=== PATIENT | male | born 1985 | race Caucasian/White ===

== ENCOUNTER → 2018-01-08 | Outpatient (CLI) | payer BC ==
[~2018-01-08] VITALS: Ht 190.5 cm; Wt 132.0 kg
[~2018-01-08] MED LIST: NORMAL SALINE IV ONE; SINCALIDE IV ONE
--- NOTE | 2018-01-08 10:02 | RAD ---
Indication: Epigastric pain for 3 months. Technique: Nuclear medicine HIDA scan with 5.5 mCi of technetium 99m Choletec. Ejection fraction was calculated after infusion of 2.6 mcg of cholecystokinin. Comparison: None Findings: Gallbladder is visualized at 10 minutes and continues to fill in a retrograde fashion. Activity is seen in the duodenum at 25 minutes. After infusion of 2.6 mcg of cholecystokinin, the ejection fraction calculated is 56%. Impression: 1. No cystic duct obstruction. 2. Normal ejection fraction.
== END | disposition home or self-care (01) ==
LOC: NM 07:50
PROVIDERS: ATTEND Internal Medicine Gastroenterology
DX: R10.13 Epigastric pain (principal); I10 Essential (primary) hypertension
CPT/HCPCS: 78226; 96374; 96375; A9537; J2805

== ENCOUNTER 2019-05-11 19:41 | Emergency (ER) | payer BC, OTHER ==
[~2019-05-11] VITALS: Ht 190.5 cm; Wt 144.2 kg
[2019-05-11] MEDS: ASPIRIN 325 MG TABLET PO ONE (20:15)
[2019-05-11] MEDS: IV NORMAL SALINE 1,000ML 1,000 ML IV ONE (20:16)
--- NOTE | 2019-05-11 20:21 | PHYS DOC ---
Past History Past Medical History: Hypertension Past Surgical History: No Surgical History Smoking: Non-smoker Alcohol Use: Occasionally Drug Use: None Adult General Chief Complaint Chief Complaint: CHEST PAIN HPI HPI Mr. Greene is a 34yo M w/ PMH significant for HTN and obesity who presents with 3 days of intermittent substernal chest pressure that does not radiate or have an identifiable trigger. Chest pressure occurred 2x on Thursday, 2x Thursday and several times today; each episode lasts for approximately 15 minutes and is associated with numbness/tingling sensation of the arms as well as difficulty breathing on during the episode. Also reports migraines related to elevated BP which have been well-controlled with ibuprofen. Patient denies current VAZQUEZ, fever, chills, n/v, abdominal pain. Denies current chest pain. No prior cardiac history of MT or DVT or PE. Patient saw his PCP yesterday for the symptoms at which time troponin test was performed and was slightly elevated at 0.06. Review of Systems Review of Systems Constitutional: Denies fever or chills Eyes: Denies redness or eye pain HENT: Denies nasal congestion or sore throat Respiratory: Reports shortness of breath. Denies cough or hemoptysis. Cardiovascular: Reports chest pressure but no pain which is currently resolved. Denies palpitations. GI: Denies abdominal pain, nausea, vomiting, diarrhea, constipation, or hematochezia : Denies dysuria or hematuria Musculoskeletal: Denies back pain or joint pain Integument: Denies rash or skin lesions Neurologic: Reports numbness/tingling of b/l UE. Denies headache. Complete systems were reviewed and found to be within normal limits, except as documented in this note. Family History Family History Brother had ischemic stroke at 29 y/o Current Medications Current Medications Current Medications Medications (Trade) Dose Ordered Sig/Izabella Start Time Stop Time Status Last Admin Dose Admin Aspirin (Lola Aspirin) 325 mg 1X ONCE 05/11/19 20:15 05/11/19 20:16 Sodium Chloride 1,000 ml @ 1,000 mls/hr 1X ONCE 05/11/19 20:00 05/11/19 20:59 Allergies Allergies Allergies Coded Allergies Type Severity Reaction Last Updated Verified No Known Drug Allergies 01/08/18 No Physical Exam Physical Exam Constitutional: obese, well developed, well nourished, no acute distress, non- toxic appearance HENT: Normocephalic, atraumatic, oropharynx moist Eyes: PERRL, EOMI, conjunctiva normal, no discharge Neck: Normal range of motion, no tenderness, supple, no cervical or supraclavicular LAD Cardiovascular: Heart regular rate and rhythm w/o gallops, rubs, or murmurs. UE radial pulses intact 2/4 b/l. Lungs & Thorax: Bilateral breath sounds clear to auscultation throughout, no wheezing Abdomen: Soft, no tenderness Skin: Warm, dry, no erythema, no rash Back: No tenderness, no CVA tenderness Extremities: No tenderness, ROM intact, no edema Neurologic: Alert and oriented X 3, normal motor function, normal sensory function, no focal deficits noted Psychologic: Affect normal, judgement normal, mood normal EKG EKG EKG obtained @ 19:52 and read @ 19:50. Normal sinus rhythm, nonspecific t wave inversion III, Q wave III and aVF., no significant ST elevation @2252 NSR at 88bpm, NO ST elevation, q waves now in I and aVL Radiology/Procedures Radiology/Procedures PROCEDURE: CHEST PA & LATERAL Exam: Chest 2 views INDICATION: Chest pain TECHNIQUE: Frontal and lateral views of the chest Comparisons: None FINDINGS: The cardiomediastinal silhouette and pulmonary vessels are within normal limits. The lung and pleural spaces are clear. IMPRESSION: No acute cardiopulmonary process. Electronically signed by: Tali Cornelius MD (05/11/2019 10:05 PM) [facility] Course & Med Decision Making Course & Med Decision Making Pertinent Labs and Imaging studies reviewed. (See chart for details) Patient with low cardiac risk factors presented with substernal chest pressure. EKG negative for ST-elevation. Labs obtained and posted to chart. Troponin 6.109 consistent for NSTEMI. Heparin bolus/gtt initiated. CXR stable. Discussed case with Dr. Arellano (cardiology) regarding consult. Patient requiring transfer to [facility] for cardiology consultation and labeling associate capability. Discussed with Dr. Bolton (hospitalist) who is in agreement with transfer to [facility] for admission. Discussed findings and plan with patient and family, who acknowledge understanding and agreement. Dragon Disclaimer Dragon Disclaimer This electronic medical record was generated, in whole or in part, using a voice recognition dictation system. Departure Departure: Impression: Primary Impression: NSTEMI (non-ST elevated myocardial infarction) Additional Impressions: Hypomagnesemia Elevated LFTs Disposition: 05 TRANSFER OTHER ([facility]) Admitting Physician: Tila Bolton Condition: GUARDED Referrals: FRANCISCO RIOS (PCP) HEART Score for Chest Pain PTs The HEART Score for CP Pts HEART Score for Chest Pain: HEART Score for Chest Pain Response (Comments) Value History Slighlty/Non-Suspicious 0 ECG Normal 0 Age < 45 0 Risk Factors 1 or 2 Risk Factors 1 Troponin >1-<3x Normal Limit 1 Total 2 Risk Factors: Risk Factors: HTN, obesity. Risk Scores: Score 0 - 3: 2.5% MACE over next 6 weeks - Discharge Home Score 4 - 6: 20.3% MACE over next 6 weeks - Admit for Clinical Observation Score 7 - 10: 72.7% MACE over next 6 weeks - Early Invasive Strategies HEART Score for Chest Pain PTs The HEART Score for CP Pts HEART Score for Chest Pain: HEART Score for Chest Pain Response (Comments) Value History Moderately Suspicious 1 ECG Nonspecific Repolarizatio 1 Age < 45 0 Risk Factors 1 or 2 Risk Factors 1 Troponin >3 x Normal Limit 2 Total 5 Risk Factors: Risk Factors: DM, Current or recent (<one month) smoker, HTN, HLP, family history of CAD, obesity. Risk Scores: Score 0 - 3: 2.5% MACE over next 6 weeks - Discharge Home Score 4 - 6: 20.3% MACE over next 6 weeks - Admit for Clinical Observation Score 7 - 10: 72.7% MACE over next 6 weeks - Early Invasive Strategies Critical Care Time Critical care time was 30 minutes which includes time at bedside, spent in discussion of patient's care with specialists and/or family members, with i nterpretation of laboratory and/or radiological studies and is exclusive of procedures. Problem Qualifiers SKY HERMAN DO May 11, 2019 20:21
[2019-05-11 20:30] LABS: BASO # 0.1 x10^3/uL (0.0-0.2); BASO % 1 % (0-3); EOS # 0.2 x10^3/uL (0.0-0.7); EOS % 2 % (0-3); HEMATOCRIT 41.8 % (39.0-53.0); HEMOGLOBIN 14.4 g/dL (13.0-17.5); LYMPH # 2.9 x10^3/uL (1.0-4.8); LYMPH % 29 % (24-48); MEAN CORPUSCULAR HEMOGLOBIN 30 pg (25-35); MEAN CORPUSCULAR HGB CONC 34 g/dL (31-37); MEAN CORPUSCULAR VOLUME 86 fL (79-100); MONO # 0.8 x10^3/uL (0.0-1.1); MONO % 9 % (0-9); NEUT # 5.8 x10^3uL (1.8-7.7); NEUT % 60 % (31-73); PLATELET COUNT 284 x10^3/uL (140-400); RED BLOOD COUNT 4.84 x10^6/uL (4.30-5.70); RED CELL DISTRIBUTION WIDTH 12.7 % (11.5-14.5); WHITE BLOOD COUNT 9.8 x10^3/uL (4.0-11.0)
[2019-05-11 21:06] LABS: ALBUMIN 3.6 g/dL (3.4-5.0); ALBUMIN/GLOBULIN RATIO 0.9 (1.0-1.7); CALCIUM 9.6 mg/dL (8.5-10.1); CREATININE 1.2 mg/dL (0.7-1.3); GFR 69.3; MAGNESIUM 1.7 mg/dL (1.8-2.4); POTASSIUM 3.7 mmol/L (3.5-5.1); TOTAL BILIRUBIN 0.4 mg/dL (0.2-1.0); TOTAL PROTEIN 7.7 g/dL (6.4-8.2)
[2019-05-11] MEDS: HEPARIN for IV BOLUS 10,000 UNIT/10 ML VIAL. IV ONE (22:08)
--- NOTE | 2019-05-11 22:08 | RAD ---
Exam: Chest 2 views INDICATION: Chest pain TECHNIQUE: Frontal and lateral views of the chest Comparisons: None FINDINGS: The cardiomediastinal silhouette and pulmonary vessels are within normal limits. The lung and pleural spaces are clear. IMPRESSION: No acute cardiopulmonary process. Electronically signed by: Tali Cornelius MD (05/11/2019 10:05 PM) [facility]
[2019-05-11] MEDS: MAGNESIUM SULFATE 2GM 50 ML IV ONE (23:03)
[2019-05-11] MEDS: HEPARIN 25,000UTS/500ML PREMIX 500 ML IV PRN (23:06)
[2019-05-11 23:55] VITALS: BP 161/99
--- NOTE | 2019-05-12 07:30 | EKG ---
[address] [address] Test Date: 2019-05-11 Test Time: 19:52:18 Pat Name: LAUREN AJ Department: Room: Gender: M Optometric Technologist: : 1985 Requested By: SKY HERMAN Order Number: [id number] Reading MD: Measurements Intervals [place] Rate: 97 P: 52 ME: 122 QRS: -6 QRSD: 82 T: -9 QT: 338 QTc: 433 Interpretive Statements SINUS RHYTHM LEFTWARD AXIS QRS(T) CONTOUR ABNORMALITY CONSIDER ANTEROSEPTAL MYOCARDIAL DAMAGE POSSIBLY ABNORMAL ECG RI6.01 No previous ECG available for comparison
--- NOTE | 2019-05-12 10:37 | EKG ---
[address] [address] Test Date: 2019-05-11 Test Time: 22:52:00 Pat Name: LAUREN AJ Department: Room: Gender: M Absence Management Consultant: BALJIT : 1985 Requested By: SKY HERMAN Order Number: [id number] Reading MD: Measurements Intervals [place] Rate: 88 P: 26 MN: 148 QRS: 84 QRSD: 82 T: 68 QT: 358 QTc: 437 Interpretive Statements SINUS RHYTHM NO SPECIFIC ECG ABNORMALITIES RI6.01 No previous ECG available for comparison
== END 2019-05-12 00:05 | disposition short-term general hospital (02) ==
LOC: ER 19:41
DX: I21.4 Non-ST elevation (NSTEMI) myocardial infarction (principal); E83.42 Hypomagnesemia; R79.89 Other specified abnormal findings of blood chemistry; I10 Essential (primary) hypertension; E66.9 Obesity, unspecified; G43.909 Migraine, unspecified, not intractable, without status migrainosus; Z68.39 Body mass index [BMI] 39.0-39.9, adult
CPT/HCPCS: 36415; 71046; 80053; 82553; 83690; 83735; 83880; 84484; 85025; 85379; 85610; 85730; 93005; 96365; 96368; 96376; 99291; J1644; J3475; 99285-25; J7030

== ENCOUNTER → 2021-09-17 | Outpatient (CLI) | payer OTHER ==
--- NOTE | 2021-09-18 07:51 | RAD ---
US TESTICULAR: 09/17/2021 11:35 AM INDICATION: 36 years old Male. Left testicular pain COMPARISON: None. FINDINGS: Sonographic evaluation of the testicles was performed utilizing grayscale, color Doppler an d spectral waveform analysis. Right: Testicle: Normal in echotexture without focal lesion. Size: 4.9 x 2.7 x 2.6 cm. Flow: Normal color Doppler flow pattern. Epididymis: Normal in size and echotexture without focal lesion. Hydrocele: None. Varicocele: None. Left: Testicle: Normal in echotexture without focal lesion. Size: 4.3 x 3.2 x 2.3 cm. Flow: Normal color Doppler flow pattern. Epididymis: Normal in size and echotexture without focal lesion. No definite asymmetric vascularity. Hydrocele: None. Varicocele: Small left varicocele with veins measuring up to 3 mm. IMPRESSION: 1. Perfusion is noted the testicles bilaterally at time of imaging. 2. Small left varicocele with veins measuring up to 3 mm. Electronically signed by: Francisca Oneal MD (09/18/2021 7:49 AM) [id number]
== END ==
LOC: US 11:20
DX: I86.1 Scrotal varices (principal); N50.812 Left testicular pain
CPT/HCPCS: 76870

== ENCOUNTER 2022-02-22 20:34 | Emergency (ER) | payer OTHER ==
[~2022-02-22] VITALS: Ht 190.5 cm; Wt 136.8 kg
--- NOTE | 2022-02-22 21:47 | PHYS DOC ---
Past History Past Medical History: Hypertension Past Medical History History of epididymitis Past Surgical History: No Surgical History Smoking: Non-smoker Alcohol Use: Occasionally Drug Use: None General Adult HPI: HPI: ".. My Lt testicle is acting up again.. I had this about a year ago.. and they said it was an infection..." Patient is a 37 year old MALE who presents with above hx and complaint of left testicle and epididymis pain. Patient had previous episode which responded to antibiotics. Approximately 1 year ago. Patient states that he has had no recent trauma. No history of STDs. Had approximate 4-5 lifetime sexual partners but has been in a committed relationship/marriage . Patient on exam is circumcised male with markedly tender at the did lysis on left testicle. Left testicle is somewhat tender. Testicle does not appear to be in malposition. No penile discharge. No adenopathy in the groin. No findings of hernia. Patient states he has had some fever sensations last day. Does not have dysuria. Has not had any problems stopping or starting his urine. Is accompanied with his and she advised she has noticed symptoms. Pt follows with [facility] for care. Review of Systems: Review of Systems: Constitutional: Denies fever or chills Eyes: Denies change in visual acuity HENT: Denies nasal congestion or sore throat Respiratory: Denies cough or shortness of breath Cardiovascular: Denies chest pain or edema GI: Denies abdominal pain, nausea, vomiting, bloody stools or diarrhea : Denies dysuria. Patient complains of left testicle pain Musculoskeletal: Denies back pain or joint pain Integument: Denies rash Neurologic: Denies headache, focal weakness or sensory changes Endocrine: Denies polyuria or polydipsia Lymphatic: Denies swollen glands Psychiatric: Denies depression or anxiety Family History: Family History: Noncontributory presentation Current Medications: Current Meds: See nursing for home meds Allergies: Allergies: Allergies Coded Allergies Type Severity Reaction Last Updated Verified No Known Drug Allergies 01/08/18 No Physical Exam: PE: Constitutional: Well developed, well nourished, no acute distress, non-toxic appearance. [] HENT: Normocephalic, atraumatic, bilateral external ears normal, oropharynx moist, no oral exudates, nose normal. [] Eyes: PERRLA, EOMI, conjunctiva normal, no discharge. [] Neck: Normal range of motion, no tenderness, supple, no stridor. [] Cardiovascular:Heart rate regular rhythm, no murmur [] Lungs & Thorax: Bilateral breath sounds clear to auscultation [] Abdomen: Bowel sounds normal, soft, no tenderness, no masses, no pulsatile masses. [] Testicle exam as per HPI Skin: Warm, dry, no erythema, no rash. [] Back: No tenderness, no CVA tenderness. [] Extremities: No tenderness, no cyanosis, no clubbing, ROM intact, no edema. [] Neurologic: Alert and oriented X 3, normal motor function, normal sensory function, no focal deficits noted. [] Psychologic: Affect anxious, judgement normal, mood normal. [] EKG: EKG: [] Radiology/Procedures: Radiology/Procedures: [][address] [address] IMAGING REPORT Signed PATIENT: LAUREN AJ ACCOUNT: [id number] : 1985 LOCATION: ER AGE: 37 SEX: M EXAM STATUS: REG ER ORD. PHYSICIAN: KRISTAL IVY MD REASON: pain PROCEDURE: TESTICULAR/SCROTUM US TESTICULAR: 02/22/2022 10:43 PM INDICATION: 37 years old Male. Pain COMPARISON: None. FINDINGS: Right: Testicle: Normal in echotexture without focal lesion. Size: 4.6 x 3.4 x 2.4 cm. Flow: Normal color Doppler flow pattern. Epididymis: Normal in size and echotexture without focal lesion. Hydrocele: None. Varicocele: None. Left: Testicle: Normal in echotexture without focal lesion. Size: 4.9 x 3.3 x 3.1 cm. Flow: Normal color Doppler flow pattern. Epididymis: Enlarged with hyperemia as may be seen with epididymitis.. Hydrocele: Trace. Varicocele: None. IMPRESSION: Enlargement of the left epididymis with hyperemia as may be seen with epididymitis. No abscess visualized. Perfusion is noted to the testicles bilaterally at the time of imaging. Electronically signed by: Bradley Carney MD (02/22/2022 11:56 PM) [facility] DICTATED AND SIGNED BY: BRADLEY CARNEY MD DATE: 02/22/22 [id number] CC: KRISTAL IVY MD; [facility]ANC[facility]OS ~ Heart Score: C/O Chest Pain: N/A Risk Factors: Risk Factors: DM, Current or recent (<one month) smoker, HTN, HLP, family history of CAD, obesity. Risk Scores: Score 0 - 3: 2.5% MACE over next 6 weeks - Discharge Home Score 4 - 6: 20.3% MACE over next 6 weeks - Admit for Clinical Observation Score 7 - 10: 72.7% MACE over next 6 weeks - Early Invasive Strategies Course & Med Decision Making: Course & Med Decision Making Pertinent Labs and Imaging studies reviewed. (See chart for details) Patient did receive a dose of Rocephin 1 g, Flagyl 2 g, and azithromycin. Patient push fluids. Take Tylenol and ibuprofen as needed for discomfort. Patient take Cipro 500 twice a day. Patient take Flagyl 500x3 times a day. May take Zofran 8 mg up to 4 times a day for active vomiting. Patient encouraged to follow-up with or urologist of choice. Did warn patient that ultrasound did not show testicle torsion and exam not consistent with testicle torsion however diagnosis can still be missed. Patient to review ED work-up with [facility]. Impression: 1. Epididymitis left testicle 2. Leukocytosis 15.9 with 75 segs and 11 bands 3. Elevated glucose 228-DM [] Dragon Disclaimer: Dragon Disclaimer: This electronic medical record was generated, in whole or in part, using a voice recognition dictation system. Departure Departure: Referrals: FRANCISCO RIOS (PCP) Scripts Ondansetron Hcl (ONDANSETRON HCL) 8 Mg Tablet 8 MG PO QIDPRN PRN for NAUSEA/VOMITING, #30 TAB Prov: KRISTAL IVY MD 02/23/22 Metronidazole (FLAGYL) 375 Mg Capsule 500 MG PO TID for infection, #30 CAP Prov: KRISTAL IVY MD 02/23/22 Ciprofloxacin (CIPRO) 500 Mg/5 Ml Serenity.mc.rec 500 MG PO BID for epididmyitis for 10 Days, MISC Prov: KRISTAL IVY MD 02/23/22 Ez Disclaimer This chart was dictated in whole or in part using Voice Recognition software in a busy, high-work load, and often noisy Emergency Department environment. It may contain unintended and wholly unrecognized errors or omissions. KRISTAL IVY MD February 22, 2022 21:47
[2022-02-22] MEDS ORDERED: KETOROLAC 60 MG/2 ML VIAL. IM ONE (22:15)
[2022-02-22] MEDS ORDERED: metroNIDAZOLE 500 MG TABLET PO ONE (22:15)
[2022-02-22] MEDS ORDERED: ONDANSETRON ODT 4 MG TAB.RAPDIS PO ONE (22:15)
[2022-02-22] MEDS ORDERED: cefTRIAXone IM 1 GM VIAL IM ONE (22:15)
[2022-02-22] MEDS ORDERED: AZITHROMYCIN 250 MG TABLET. PO ONE (22:15)
[2022-02-22] MEDS ORDERED: MORPHINE SULFATE 10 MG/ML SYRINGE. SQ ONE (22:30)
[2022-02-22 22:39] LABS: BASO # 0.1 x10^3/uL (0.0-0.2); BASO % 1 % (0-3); EOS % 0 % (0-3); HEMATOCRIT 38.5 % (39.0-53.0); HEMOGLOBIN 13.3 g/dL (13.0-17.5); LYMPH # 1.2 x10^3/uL (1.0-4.8); LYMPH % 8 % (24-48); MEAN CORPUSCULAR HEMOGLOBIN 30 pg (25-35); MEAN CORPUSCULAR HGB CONC 34 g/dL (31-37); MEAN CORPUSCULAR VOLUME 87 fL (79-100); MONO # 1.2 x10^3/uL (0.0-1.1); MONO % 7 % (0-9); NEUT # 13.5 x10^3uL (1.8-7.7); NEUT % 84 % (31-73); PLATELET COUNT 228 x10^3/uL (140-400); RED BLOOD COUNT 4.45 x10^6/uL (4.30-5.70); RED CELL DISTRIBUTION WIDTH 12.7 % (11.5-14.5); WHITE BLOOD COUNT 15.9 x10^3/uL (4.0-11.0)
[2022-02-22] MEDS: IV RINGERS SOLUTION,LACTATED 1,000 ML IV SCH ×2 (22:43→23:14)
[2022-02-22 22:49] LABS: CALCIUM 8.8 mg/dL (8.5-10.1); CREATININE 1.1 mg/dL (0.7-1.3); GFR 75.3; POTASSIUM 3.9 mmol/L (3.5-5.1)
[2022-02-22 23:04] LABS: % BANDS 11 % (0-9); % EOS 1 % (0-5); % LYMPHS 8 % (24-48); % MONOS 5 % (0-10); % SEGS 75 % (35-66)
[2022-02-22 23:05] LABS: PLT ESTIMATE ADEQUATE (ADEQUATE)
--- NOTE | 2022-02-22 23:59 | RAD ---
US TESTICULAR: 02/22/2022 10:43 PM INDICATION: 37 years old Male. Pain COMPARISON: None. FINDINGS: Right: Testicle: Normal in echotexture without focal lesion. Size: 4.6 x 3.4 x 2.4 cm. Flow: Normal color Doppler flow pattern. Epididymis: Normal in size and echotexture without focal lesion. Hydrocele: None. Varicocele: None. Left: Testicle: Normal in echotexture without focal lesion. Size: 4.9 x 3.3 x 3.1 cm. Flow: Normal color Doppler flow pattern. Epididymis: Enlarged with hyperemia as may be seen with epididymitis.. Hydrocele: Trace. Varicocele: None. IMPRESSION: Enlargement of the left epididymis with hyperemia as may be seen with epididymitis. No abscess visual ized. Perfusion is noted to the testicles bilaterally at the time of imaging. Electronically signed by: Francisca Oneal MD (02/22/2022 11:56 PM) [facility]
[2022-02-23] MEDS ORDERED: CIPR500S2 PO (02:28)
[2022-02-23] MEDS ORDERED: CIPROFLOXACIN HCL 500 MG TABLET PO ONE (02:29)
[2022-02-23] MEDS ORDERED: ONDA-85 PO (02:46)
[2022-02-23] MEDS ORDERED: METR375C PO (02:46)
[2022-02-23 02:54] VITALS: BP 136/78
[2022-02-23 03:28] LABS: BACTERIA,URINE 0 /HPF (0-FEW); CLARITY,URINE CLEAR; COLOR,URINE YELLOW; GLUCOSE,URINE >=1000 mg/dL (NEG); NITRITE,URINE NEG (NEG); RBC,URINE 0 /HPF (0-2); SQUAMOUS EPITHELIAL CELL,UR OCC /LPF; WBC,URINE RARE /HPF (0-4)
== END 2022-02-23 02:57 | disposition home or self-care (01) ==
LOC: ER 20:34
DX: N45.1 Epididymitis (principal); D72.829 Elevated white blood cell count, unspecified; E11.65 Type 2 diabetes mellitus with hyperglycemia; I10 Essential (primary) hypertension
CPT/HCPCS: 36415; 76870; 80048; 81001; 85007; 85025; 87491; 87591; 96360; 96361; 96372; 99284; J0696; J1885; J2270; J7120; Q0162